=== PATIENT | male | born 1945 | race Caucasian/White ===

== ENCOUNTER → 2020-10-20 10:09 | Outpatient (CLI) | payer MEDICARE, SELFPAY ==
--- NOTE | ~2020-10-20 | US_ITS ---
EXAMINATION: US aorta DATE: 10/20/2020 10:32 INDICATION: Abdominal aortic aneurysm screening TECHNIQUE: Grayscale, color Doppler, and pulsed Doppler images of the aorta and common iliac arteries were obtained. COMPARISON: None. FINDINGS: The proximal aorta measures 2.3 cm in maximal AP diameter. The mid aorta measures 2.5 cm. The distal aorta measures 1.5 cm. The right common iliac artery measures 1.3 cm. The left common iliac artery me asures 0.9 cm. IMPRESSION: 1. Normal caliber abdominal aorta. Reviewed, dictated and finalized at location B.
== END ==
PROVIDERS: PCP Family Medicine; Visit Provider Nurse Practitioner Family
DX: Z13.6 Encounter for screening for cardiovascular disorders (principal)
CPT/HCPCS: 76775

== ENCOUNTER 2022-08-28 13:39 | Outpatient (CLI) | payer MEDICARE, SELFPAY ==
--- NOTE | ~2022-08-28 | CT_ITS ---
EXAMINATION: CT lung screening DATE: 08/28/2022 13:57 INDICATION: Personal history nicotine dependence, prior smoker with 40 pack year history TECHNIQUE: Computed tomography (CT) of the chest was performed without intravenous contrast. The dose -length product (DLP) was 114.88 mGy-cm. Automated exposure control and iterative reconstruction tech [employer] were employed. COMPARISON: None FINDINGS: There is a 2 mm nodule of the right middle lobe. There is a 2 mm nodule in the left upper l obe. A fissural lymph node is noted in association with the minor fissure. There is mild emphysema. N o pleural effusion or pneumothorax. No pathologically enlarged thoracic lymph nodes are identified. T he heart size is normal. Cysts of the liver measure up to 12 mm in the right hepatic lobe. There is m oderate thoracic spondylosis. IMPRESSION: 1. Lung-RADS category 2: Benign appearance or behavior. Reviewed, dictated and finalized at location B. XER
== END 2022-08-28 13:40 | disposition home or self-care (01) ==
PROVIDERS: PCP Family Medicine; Visit Provider Nurse Practitioner Family
DX: Z12.2 Encounter for screening for malignant neoplasm of respiratory organs (principal); Z87.891 Personal history of nicotine dependence
CPT/HCPCS: 71271

== ENCOUNTER 2022-12-03 19:30 | Emergency (ER) | payer MEDICARE, SELFPAY ==
--- NOTE | ~2022-12-03 | XR_ITS ---
EXAM: XR forearm LT 2V DATE: 12/03/2022 20:00 HISTORY: wood punctured skin, r/o foreign body lt forearm . COMPARISON: None available. FINDINGS: Decreased mineralization. No fracture or dislocation. No lytic or blastic lesion. Joint sp aces are maintained. No erosion or periosteal change. Scattered subcutaneous gas in the distal forear m soft tissues, seen only in the frontal view. Basilar calcifications. IMPRESSION: No acute osseous finding in the left forearm. No radiopaque foreign body. Small volume webber bcutaneous gas in the distal left forearm. Reviewed, dictated and finalized at location K. IMPRESSION: No acute osseous finding in the left forearm. No radiopaque foreign body. Small volume subcutaneous gas in the distal left forearm.
[2022-12-03 19:36] VITALS: BP 124/69; PULSE 75; RESP 20; TEMP 36.2; O2SAT 96
--- NOTE | 2022-12-03 19:44 | ED.SKABFB ---
HPI - Skin/Abscess/Foreign Bdy General Chief complaint: Skin/Abscess/Foreign Body Stated complaint: left arm lac Source: patient and RN notes reviewed Limitations: no limitations History of Present Illness HPI narrative: Patient is a 77-year-old male who presents to the [facility] with puncture wound to his left forearm. Patient states that he was trimming branches of a [place] tree when one of the branches struck his left forearm. He presents with a 2x2 cm puncture wound with tiny wooden fragments. He has full range of motion of the left arm. Sensation is intact distal to the injury. Pulses present. Bleeding is controlled. Unsure of last tetanus. Related Data Home Medications Medication Instructions Recorded Confirmed acetaminophen 325 mg capsule 325 mg PO Q4H 10/13/20 12/03/22 (Tylenol) ascorbate calcium (vitamin C) 500 500 mg PO DAILY 06/20/22 12/03/22 mg tablet cholecalciferol (vitamin D3) 50 50 mcg PO DAILY 06/20/22 12/03/22 mcg (2,000 unit) capsule multivitamin (Daily Multi-Vitamin 1 tablet PO DAILY 06/20/22 12/03/22 tablet) Allergies Allergy/AdvReac Type Severity Reaction Status Date / Time No Known Allergies Allergy Verified 12/03/22 19:45 Review of Systems Review of Systems: CONSTITUTIONAL: Denies fever, chills, or sweats. EYES: Denies visual changes, redness, or discharge. ENT: Denies otalgia and sore throat CARDIOVASCULAR: Denies chest pain, palpitations, or edema. RESPIRATORY: Denies cough or dyspnea. GASTROINTESTINAL: Denies abdominal pain, nausea, vomiting, or diarrhea. GENITOURINARY: Denies dysuria or hematuria. SKIN: Denies rash or itching. Puncture wound noted to left forearm; no active bleeding. MUSCULOSKELETAL: Denies back pain, joint pain, or myalgia. NEUROLOGIC: Denies headache, numbness, or weakness. Pertinent positives per HPI. [facility] Past Medical History Medical History Essential (primary) hypertension Former smoker Low back pain Mixed hyperlipidemia Prediabetes Last A1c: 4.9 (10/15/21) Screening for AAA (abdominal aortic aneurysm) Normal U/S 10/2020 Surgical History Surgical History Hx of cataract removal with insertion of prosthetic lens (~2021) January and Family History Family History Other Diabetes mellitus Social History Social History Smoking packs per day: 1 Smoking cigarettes per day: 20.0 Years smoked: 40 Smoking pack-years: 40.00 Smoking status: Former smoker Tobacco type: cigarettes Smoking end date: 07/14/98 Alcohol intake: never Substance use: current Substance use type: marijuana Other substance usage details: daily Lack of Transportation: No Lack of Food: Never True Current Housing: Decline to Answer Concerned About Future Housing: No Difficulty Paying Gas/Electric Bills: No Difficulty Paying for Meds: No Currently Unemployed: No Education: High School Diploma/GED Difficulty w/ Childcare or Family Care: No Living arrangements: with family Additional living arrangements comments: Sister Occupation/Education: retired Gender identity (if verbalized by the patient): Male Spiritual care concerns: No Agree to blood products: Yes Comments At the time of my signature, I reviewed and agree with the nursing past medical, surgical, social, and family history. There is no relevant family history pertinent to the patient complaint. Exam Narrative: GENERAL: This is a well-nourished, well-developed patient, in no apparent distress. HEAD: normocephalic, atraumatic. EYES: Sclera clear/white. Vision is grossly intact. EARS: External ears normal, auditory canals clear and without drainage, TMs normal without perforation. Hearing grossly intact. NOSE: External nose no
[2022-12-03] MEDS: TETANUS,DIPHTHERIA,AC PERTUSSIS ADULT (0.5 ML) BOOSTRIX IM (19:58)
== END 2022-12-03 20:19 | disposition home or self-care (01) ==
PROVIDERS: Emergency Provider Nurse Practitioner; PCP Family Medicine
DX: S51.832A Puncture wound without foreign body of left forearm, initial encounter (principal); W22.8XXA Striking against or struck by other objects, initial encounter; Z23 Encounter for immunization; Z87.891 Personal history of nicotine dependence; F12.90 Cannabis use, unspecified, uncomplicated; I10 Essential (primary) hypertension; E78.2 Mixed hyperlipidemia; R73.03 Prediabetes
CPT/HCPCS: 73090; 90471; 90715; 99213; G0463

== ENCOUNTER 2023-02-27 00:28 | Day surgery (SDC) | payer MEDICARE, SELFPAY ==
[2023-02-12 12:42] VITALS: BMI 20.9
[2023-02-27 07:48] VITALS: BP 137/78; PULSE 71; RESP 16; TEMP 36.4; O2SAT 100; BMI 19.7
[2023-02-27] MEDS: LACTATED RINGERS 1,000 ML 150 ML IV CONT (07:56)
--- NOTE | 2023-02-27 08:08 | WPDANESEPPF ---
Anes - Initial Pre Proc Eval Procedure: Operation Date: 02/27/23 09:00 Proposed Procedures p Screening Colonoscopy - Lit Orlando MD Date/Time: 02/27/23 08:08 Surgeon: Lit Orlando MD Pre Op Diagnosis: neoplasm screening Patient Data Age: 77 Gender: M Height: 1.8 m Weight: 64.2 kg Last Vital Signs Temp 97.5 F L 02/27/23 07:48 Pulse 71 02/27/23 07:48 Resp 16 02/27/23 07:48 BP 137/78 02/27/23 07:48 Pulse Ox 100 02/27/23 07:48 O2 Del Method Room Air 02/27/23 07:48 Allergies Allergy/AdvReac Type Severity Reaction Status Date / Time No Known Allergies Allergy Verified 02/27/23 07:46 Home Medications Medication Instructions Recorded Confirmed Type acetaminophen 325 mg capsule 325 mg PO Q4H PRN Pain 10/13/20 02/27/23 History (Tylenol) ascorbate calcium (vitamin C) 500 500 mg PO DAILY 06/20/22 02/27/23 History mg tablet cholecalciferol (vitamin D3) 50 50 mcg PO DAILY 06/20/22 02/27/23 History mcg (2,000 unit) capsule multivitamin (Daily Multi-Vitamin 1 tablet PO DAILY 06/20/22 02/27/23 History tablet) atorvastatin 20 mg tablet 20 mg PO DAILY #90 tabs 08/29/22 02/27/23 Rx timolol maleate 0.5 % eye drops 1 drp EACH EYE Q12H 12/13/22 02/27/23 History benazepril 10 mg tablet 10 mg PO DAILY #90 tabs 01/13/23 02/27/23 Rx meloxicam 7.5 mg tablet 7.5 mg PO DAILY #90 tabs 01/15/23 02/27/23 Rx Patient hx anesthesia problems: none Family hx anesthesia problems: none Results Review: All pre-operative results and documents have been reviewed as part of the pre-operative evaluation. [facility] Past Medical History Medical History Essential (primary) hypertension Former smoker Low back pain Mixed hyperlipidemia Prediabetes Last A1c: 4.9 (10/15/21) Screening for AAA (abdominal aortic aneurysm) Normal U/S 10/2020 Surgical History Surgical History Hx of cataract removal with insertion of prosthetic lens (~2021) January and Family History Family History Other Diabetes mellitus Social History Social History Smoking packs per day: 1 Smoking cigarettes per day: 20.0 Years smoked: 41 Smoking pack-years: 41.00 Smoking status: Former smoker Tobacco type: cigarettes and cigars Smoking end date: 07/14/98 Alcohol intake: never Substance use: current Substance use type: marijuana Other substance usage details: 1-2 times a day Lack of Transportation: No Lack of Food: Never True Current Housing: Decline to Answer Concerned About Future Housing: No Difficulty Paying Gas/Electric Bills: No Difficulty Paying for Meds: No Currently Unemployed: No Education: High School Diploma/GED Difficulty w/ Childcare or Family Care: No Living arrangements: with family Additional living arrangements comments: Sister Occupation/Education: retired Gender identity (if verbalized by the patient): Male Spiritual care concerns: No Agree to blood products: Yes Anes - Eval Final PreProcedure Day of Procedure 02/27/23 08:08 Patient weight: normal Heart: regular rate and rhythm Lungs: clear to auscultation Airway: Mallampati scale class II Neurological: alert and oriented Last oral intake: >/= 8 hours ASA classification: III Emergent: no Anesthetic plan: proceed Anesthesia type and monitoring: general GIVS and standard monitoring Results Review: All pre-operative results and documents have been reviewed as part of the pre-operative evaluation. Informed Consent: The patient's anesthetic plan and its attendant risks and benefits were discussed with the patient/family/POA. Questions were solicited and answers provided to the satisfaction of the patient/family/POA.
--- NOTE | 2023-02-27 08:16 | PM.HPGS ---
History of Present Illness History of Present Illness Consent: Risks, benefits, and alternatives have been discussed and questions answered. Patient agrees to proceed with procedure. Chief complaint: neoplasm screening Narrative: Cisco Taylor Jr. is a 77 year old male Presents for screening colonoscopy. Patient's current weight appetite and bowel movements are normal. Patient denies abdominal pain. He has had no bleeding. Family history noncontributory. Review of Systems Review of Systems: review of systems noncontributory. [facility] Past Medical History Medical History Essential (primary) hypertension Former smoker Low back pain Mixed hyperlipidemia Prediabetes Last A1c: 4.9 (10/15/21) Screening for AAA (abdominal aortic aneurysm) Normal U/S 10/2020 Surgical History Surgical History Hx of cataract removal with insertion of prosthetic lens (~2021) January and Family History Family History Other Diabetes mellitus Social History Social History Smoking packs per day: 1 Smoking cigarettes per day: 20.0 Years smoked: 41 Smoking pack-years: 41.00 Smoking status: Former smoker Tobacco type: cigarettes and cigars Smoking end date: 07/14/98 Alcohol intake: never Substance use: current Substance use type: marijuana Other substance usage details: 1-2 times a day Lack of Transportation: No Lack of Food: Never True Current Housing: Decline to Answer Concerned About Future Housing: No Difficulty Paying Gas/Electric Bills: No Difficulty Paying for Meds: No Currently Unemployed: No Education: High School Diploma/GED Difficulty w/ Childcare or Family Care: No Living arrangements: with family Additional living arrangements comments: Sister Occupation/Education: retired Gender identity (if verbalized by the patient): Male Spiritual care concerns: No Agree to blood products: Yes Meds Home Medications and Allergies Home Medications Medication Instructions Recorded Confirmed Type acetaminophen 325 mg capsule 325 mg PO Q4H PRN Pain 10/13/20 02/27/23 History (Tylenol) ascorbate calcium (vitamin C) 500 500 mg PO DAILY 06/20/22 02/27/23 History mg tablet cholecalciferol (vitamin D3) 50 50 mcg PO DAILY 06/20/22 02/27/23 History mcg (2,000 unit) capsule multivitamin (Daily Multi-Vitamin 1 tablet PO DAILY 06/20/22 02/27/23 History tablet) atorvastatin 20 mg tablet 20 mg PO DAILY #90 tabs 08/29/22 02/27/23 Rx timolol maleate 0.5 % eye drops 1 drp EACH EYE Q12H 12/13/22 02/27/23 History benazepril 10 mg tablet 10 mg PO DAILY #90 tabs 01/13/23 02/27/23 Rx meloxicam 7.5 mg tablet 7.5 mg PO DAILY #90 tabs 01/15/23 02/27/23 Rx Allergies Allergy/AdvReac Type Severity Reaction Status Date / Time No Known Allergies Allergy Verified 02/27/23 07:46 Vital Signs Vital Signs - 24 hr 02/27/23 07:48 Temperature 97.5 F L Pulse Rate 71 Respiratory Rate 16 Blood Pressure 137/78 Pulse Oximetry 100 Oxygen Delivery Room Air Exam Narrative: Physical exam reveals patient to be alert. Vital signs stable. HEENT exam is unremarkable. Patient is anicteric. Lungs are clear to auscultation and percussion. Heart is without murmur or extra sounds. Abdomen bowel sounds are present soft nontender with no organomegaly. Digital external rectal exam is normal. Assessment and Plan Assessment and plan (1) Encounter for screening colonoscopy: Code(s): Z12.11 - Encounter for screening for malignant neoplasm of colon Status: Acute Assessment and Plan: Patient presents today for screening colonoscopy. He appears to be at average risk for colon polyps. Further recommendations may be given after endoscopy.
[2023-02-27] MEDS: SIMETHICONE ORAL SUSPENSION 20 MG/0.3 ML 30 ML BOTTLE 0.6 ML IRRIGATION (08:33)
[2023-02-27 08:42] VITALS: BP 101/63; PULSE 71; RESP 24; O2SAT 98
[2023-02-27 08:52] VITALS: BP 116/70; PULSE 62; RESP 22; O2SAT 98
[2023-02-27 09:02] VITALS: BP 132/75; PULSE 63; RESP 22; O2SAT 98
== END 2023-02-27 09:10 | disposition home or self-care (01) ==
PROVIDERS: PCP Family Medicine; Visit Provider Internal Medicine Gastroenterology
PROC: 0DJD8ZZ Inspection of Lower Intestinal Tract, Via Natural or Artificial Opening Endoscopic (ICD-10-PCS; CPT 45378; principal; 2023-02-27 09:00)
DX: Z12.11 Encounter for screening for malignant neoplasm of colon (principal); K64.8 Other hemorrhoids; K57.30 Diverticulosis of large intestine without perforation or abscess without bleeding; I10 Essential (primary) hypertension; E78.2 Mixed hyperlipidemia; R73.03 Prediabetes; F12.90 Cannabis use, unspecified, uncomplicated; Z87.891 Personal history of nicotine dependence
CPT/HCPCS: G0121; J2704; J7120

== ENCOUNTER 2024-03-19 13:28 | Outpatient (CLI) | payer MEDICARE, SELFPAY ==
--- NOTE | ~2024-03-19 | CT_ITS ---
EXAMINATION:CT lung screening DATE: 03/19/2024 13:49 INDICATION: Personal history of nicotine dependence. Current smoker with 40 pack year history. TECHNIQUE: Computed tomography (CT) of the chest was performed without intravenous contrast. Automate d exposure control and iterative reconstruction technique were employed. The dose-length product (DLP ) was 126.34 mGy-cm. COMPARISON: Chest CT 08/28/2022 FINDINGS: There is mild scarring at the lung apices. No pleural effusion. The heart size is normal. T here are coronary artery calcifications. No pericardial effusion. There is a 12 mm cyst in the liver. There is mild thoracic spondylosis. IMPRESSION: 1. Lung-RADS category 2: Benign appearance or behavior. Continue annual screening with noncontrast lo w-dose chest CT in 12 months. Reviewed, dictated and finalized at location A. IMPRESSION: 1. Lung-RADS category 2: Benign appearance or behavior. Continue annual screeni ng with noncontrast low-dose chest CT in 12 months.
== END 2024-03-19 13:29 | disposition home or self-care (01) ==
PROVIDERS: PCP Family Medicine; Visit Provider Nurse Practitioner Family
DX: Z12.2 Encounter for screening for malignant neoplasm of respiratory organs (principal); F17.210 Nicotine dependence, cigarettes, uncomplicated
CPT/HCPCS: 71271

== ENCOUNTER 2025-03-09 15:18 | Outpatient (CLI) | payer MEDICARE, SELFPAY ==
--- OUTSIDE RECORDS SUMMARY | 2010-03-13 06:30 | XMS_ITS | Continuity of Care Document ---
Author Organization [facility] Address [address] [place] [address] [address] [place] [address] Phone Care Team Providers Care Recruitment Consultant Name Role Phone Raman PHAN FACS, Moreno Unavailable Unavailab le Procedures Procedure Date Office/outpatient Visit, Est Office/outpatient Visit, Est Office/outpatient Visit, Est Office/outpatient Visit, New Remove Foreign Body From Eye Advance Directives Directive Yes / No Effective Date File Name No Information Encounters Encounter Description Practice Location Reason(s) For Visit Diagnoses Date Provider Providers Copied on Encounter Office/[place]pat ient [place], [facility] [place] [address], [place], [place], [id number], tel:[phone] [facility] Professional No Information 0 Raman Mayer. [address] [place] [address], [address], [place], [place], [id number], [place]. tel:[phone] Referring Provider: Michael Ramirez, [address] [place], [address] . tel:[phone] Office/[place]pat ient [place], [facility] [place], [id number] [place] [address] [address], [place], [place], [id number], [place] tel:[phone] [facility] Professional No Information 0 Cassie Rodriguez. [address] [facility] [place], [place], [id number], [place]. tel:[phone] Office/outpat ient Visit, [facility] [place], [address], [place], [place], [id number], tel:[phone] [facility] Professional No Information 0 Cassie Rodriguez. [address] [place], [place], [id number], . tel:[phone] Office/outpat ient Visit, [facility], [address], [place], [place], [id number], tel:[phone] [facility] Professional No Information 0 Cassie Rodriguez. [address] [place], [place], [address], . tel:[phone] Referring Provider: Michael Ramirez, [address] [place], [address] . tel:[phone] Family History Family Member Type Diagnosis Age At Onset No Information Payers Payer name Insurance type Covered democrat ID Jordy sanches(s) [facility] Out Of State [id number] Social History Type Description Quantity Date Captured Comments Sex Male Smoking Status No Information Chief Complaint And Reason For Visit No Information Reason For Referral Reason For Referral No Information History Of Present Illness Encounter Date Complaint History Of Prese nt Illness No Information Functional Status Date Functional Assessmen t No Information Instructions Date Instruction Additional Infor mation No Information Assessments Type Assessment Date No Information Patient Care Teams Name Effective Dates (start - stop) Status Members No Information
[2025-03-09 16:52] LABS: CRP < 0.5 mg/dL (<1.0); Uric Acid 4.6 mg/dL (3.5-8.5)
[2025-03-10 15:09] LABS: Anti-CCP Ab, IgG/IgA 12 units (0-19)
[2025-03-11 13:08] LABS: ANA by IFA Rfx Titer/Pattern Negative (.)
== END 2025-03-09 15:19 | disposition home or self-care (01) ==
LOC: ANHGOSHLAB 15:19
PROVIDERS: PCP Nurse Practitioner Family; Visit Provider Nurse Practitioner Family
DX: R21 Rash and other nonspecific skin eruption (principal); M25.50 Pain in unspecified joint; Z82.61 Family history of arthritis
CPT/HCPCS: 36415; 84550; 85652; 86038; 86140; 86200; 86430